=== PATIENT | male | born 1950 | race Caucasian/White ===

== ENCOUNTER 2025-03-03 13:10 | Observation (INO) ==
--- NOTE | 2025-02-20 09:28 | Anesthesiology Consultation ---
Date of Service February 20, 2025 Assessment & Plan (1) Encounter for pre-operative examination: Infectious disease screening: Per assessment on 02/18/25- No known recent infectious disease contacts or current infectious disease symptoms. Chart Review Chart Review: Acceptable Risk for Surgery and Patient NOT seen in Pre Admission Testing History Surgery Operation Date: 03/03/25 14:50 Proposed Procedures p TURP (Transurethral Resection of Prostate) - Wilfredo King MD Height/Weight Height: 6 ft Weight: 104.78 kg Allergies Allergy/AdvReac Type Severity Reaction Status Date / Time No Known Allergies Allergy Verified 02/18/25 07:48 Medications Home Medications Medication Instructions Recorded Confirmed Last Taken amlodipine 5 mg tablet 5 mg PO HS 02/16/25 02/18/25 Unknown cholecalciferol (vitamin D3) 25 25 mcg PO DAILY 02/16/25 02/18/25 Unknown mcg (1,000 unit) capsule doxycycline hyclate 100 mg capsule 100 mg PO QAM 02/16/25 02/18/25 Unknown finasteride 5 mg tablet 5 mg PO HS 02/16/25 02/18/25 Unknown imipramine HCl 50 mg tablet 50 mg PO QAM 02/16/25 02/18/25 Unknown lisinopril 5 mg tablet 5 mg PO HS 02/16/25 02/18/25 Unknown tamsulosin 0.4 mg capsule 0.4 mg PO QAM 02/16/25 02/18/25 Unknown Past Medical History Medical History (Updated 02/20/25 @ 09:57 by Maryam Toth) BPH (benign prostatic hyperplasia) History of chronic eye infection Takes doxycycline daily for this History of COVID-19 (2021) Resolved HTN (hypertension) Urinary retention due to benign prostatic hyperplasia Past Surgical History Surgical History Hx of appendectomy Hx of bilateral cataract extraction Hx of colonoscopy Social History Smoking Status: Former smoker Do You Dip or Chew Tobacco: No Smoking End Date: quit 20 yrs ago Hx Alcohol Use: Yes (2-3 per day) Alcohol type: beer alcohol intake frequency: 3 or more drinks per day Hx Substance Use: No substance use type: does not use Testing Laboratory Results 02/18/25 WBC 5.6 H/H 12.7/38.4 PLATELETS 227 SODIUM 138 POTASSIUM 5.0 CHLORIDE 107 CO2 23 BUN 25 CREATININE 1.5 GLUCOSE 97 02/16/25 UA negative Urine culture No growth Electrocardiogram Date: 02/18/25 SR with first degree ACV. 70bpm. LAFB. Chest X-Ray Date: 02/18/25 No acute process. Slight increased AP diameter and flattening of the diaphragms suggestive of a component of COPD.
[~2025-03-03 13:10] MED LIST: DEXAMETHASONE SOD INJ 4 MG/ML VIAL ONE; LIDOCAINE 2% 2 ML VIAL/AMP(20MG/ML) INFIL ONE; ONDANSETRON INJ 2 MG/ML 2 ML VIAL ONE; PROPOFOL IV EMULSION 10 MG/ML 20 ML VIAL IV ONE
[2025-03-03] MEDS: LR 15ML/HR IV SCH (13:31)
[2025-03-03] MEDS ORDERED: ATROPINE SULFATE 0.1 MG/ML 10ML SYR IV PRN (14:58)
[2025-03-03] MEDS ORDERED: ONDANSETRON INJ 2 MG/ML 2 ML VIAL IV PRN (14:58)
--- NOTE | 2025-03-03 16:52 | History & Physical Bridge Note ---
Date of Service March 03, 2025 History & Physical Bridge Note I have examined the patient, reviewed the History & Physical and in the interval since the performance of the History & Physical I have noted the following changes of clinical significance: no changes noted
[2025-03-03] MEDS: cefTRIAXone SODIUM 1,000 MG MINI-B 50 ML IV SCH (16:54)
[2025-03-03] MEDS ORDERED: ACETAMINOPHEN 325 MG TAB PO PRN (18:19)
[2025-03-03] MEDS ORDERED: IBUPROFEN 200 MG TAB PO PRN (18:19)
[2025-03-03] MEDS ORDERED: PHENAZOPYRIDINE HCL 100 MG TAB PO PRN (18:19)
--- NOTE | 2025-03-03 18:22 | Post Operative Brief Note ---
PG Immediate Post Op with CF Date of Surgery March 03, 2025 Pre & Post Diagnosis Operation Date: 03/03/25 14:50 Pre-Op Diagnosis: Urinary retention due to benign prostatic hyperplasia. Post-Op Diagnosis: Urinary retention due to benign prostatic hyperplasia. I identified the patient and participated in the time-out.: Yes Procedure Operation Date: 03/03/25 14:50 Actual Procedures p Transurethral Resection of Prostate(Not Applicable) - Wilfredo King MD Surgeon Wilfredo King MD Pallet Assembler none Estimated Blood Loss 50 Findings Consistent with Post-Op Diagnosis enlarged obstructing prostate with large median lobe Specimens Specimen Description: A. Prostate chips. Drains Harper Catheter
[2025-03-03 20:18] VITALS: RESP 16
[2025-03-03] MEDS: FINASTERIDE 5 MG TAB PO SCH (20:57)
[2025-03-04 02:35] VITALS: TEMP 97.9
[2025-03-04] MEDS: POLYETHYLENE (MIRALAX) 17 GM PACK PO SCH (08:17)
[2025-03-04] MEDS: IMIPRAMINE HCL 50 MG TAB PO SCH (08:17)
[2025-03-04] MEDS: DOXYCYCLINE HYCLATE 100 MG CAP PO SCH (08:18)
[2025-03-04] MEDS: CHOLECALCIFEROL 25 MCG (1000 UNITS) TAB PO SCH (08:18)
[2025-03-04] MEDS: TAMSULOSIN HCL 0.4 MG CAP PO SCH (08:18)
[2025-03-04 08:53] VITALS: BP 128/75; PULSE 83; O2SAT 99
--- NOTE | 2025-03-04 09:11 | Operative Report ---
PG Post Operative Report Pre & Post Diagnosis Operation Date: 03/03/25 14:50 Pre-Op Diagnosis: Urinary retention due to benign prostatic hyperplasia. Post-Op Diagnosis: Urinary retention due to benign prostatic hyperplasia. I identified the patient and participated in the time-out.: Yes Procedure Operation Date: 03/03/25 14:50 Actual Procedures p Transurethral Resection of Prostate(Not Applicable) - Wilfredo King MD Surgeon Wilfredo King MD Fence Maker none Estimated Blood Loss 50 Findings Consistent with Post-Op Diagnosis Specimens prostate chips Drains [address] catheter Description of Procedure SURGEON: Dr. King JOURNEYMAN TOOL AND DIE MAKER: NA PREOPERATIVE DIAGNOSIS: Enlarged Prostate POSTOPERATIVE DIAGNOSIS: same PROCEDURE: Cystourethroscopy, transurethral resection of prostate FINDINGS: 1. tri-lobar prostate enlargement ANESTHESIA: general ESTIMATED BLOOD LOSS: 50 cc TUBES AND DRAINS: [address] catheter SPECIMENS: 1. Prostate chips COMPLICATIONS: none INDICATIONS FOR PROCEDURE: See preoperative diagnosis OPERATIVE DETAIL: The patient was prepped and draped in the usual fashion in the operating room. A well lubricated resectoscope was inserted into the urethral meatus using the visual obturator and advanced into the bladder. Care was taken to keep the lumen in the center of view. The prostatic urethra was identified including the verumontanum. This landmark was used as the distal limit of resection to protect the urinary sphincter. The prostate was enlarged with kissing lobes and massive tri-lobar prostate enlargement. It was noted to visually obstruct passage into the bladder. Upon entering the bladder the visual obturator was exchanged for the resectoscope loop, the bladder was partially filled. Urine wasclear and wasnot sent for cytology. The bladder was then evaluated in a panendoscopic fashion. There wereno mucosal lesions, end stage trabeculations, numerous diverticuli and no stones. The left and right ureteral orifices were not identified in the orthotopic positions and appeared to be pulled back into diverticuli or obscrued by trabeculations. We then proceeded to resect the obstructing prostate tissue taking care to avoid advancing towards the ureteral orifices or distal to the verumontanum. Prostatic chips were evacuated using a aster syringe and meticulous hemostasis was achieved. All parts of the cystoscope and all instruments were removed intact from the patient. A [address] catheter was placed with cbi at slow drip. Urine was light pink The patient tolerated the procedure well. Please note thatI was present and performed all components of the procedure. I attest to the content of the Intraoperative Record and any orders documented therein. Any exceptions are noted below.
--- NOTE | 2025-03-04 09:36 | Urology Progress Note ---
<Statement entered by Wilfredo King MD - 03/04/25 12:25> Chart reviewed plan reviewed and agree as written. Date of Service March 04, 2025 Assessment & Plan (1) Urinary retention due to benign prostatic hyperplasia: Plan: - Pt POD#1 s/p TURP with Dr. King - Doing well, progressing as expected - Afebrile, stable vitals - Tolerating diet - 3 way Harper catheter intact, patent and draining minimally pink tinged urine with CBI on slow - CBI clamped during exam - will reassess later this AM - Maintain Harper catheter - Anticipate home with Harper catheter later today presuming urine appropriate and he continues to progress as expected - Expected clinical course reviewed, all questions answered - Will arrange outpatient follow-up with our service Admission and Anticipated Discharge Date Admission Date: March 03, 2025 Subjective Patient seen and examined at bedside. He is awake and in bed. No acute issues overnight. Denies pain. Harper draining minimally pink-tinged urine with CBI on slow. CBI clamped at bedside. No nausea, vomiting, fever or chills. Review of Systems Constitutional: as per Subjective / HPI Genitourinary: + as per Subjective / HPI Physical Exam Constitutional: well developed and well nourished; no acute distress Respiratory: normal respiratory effort; no respiratory distress and no labored breathing Gastrointestinal (Abdomen): Inspection/Auscultation: abdomen normal to inspection Musculoskeletal: Head/Neck/Chest: normocephalic Neurologic: moves all extremities and awake Psychiatric: Orientation: alert and oriented x 3 Genitourinary: Harper draining minimally pink-tinged urine with CBI on slow, CBI clamped at bedside Results & Data Vital Signs (Past 12 Hours) Vital Signs Temp Pulse Pulse Resp BP Pulse Ox O2 Del Method 03/04/25 08:52 36.6 C 83 16 128/75 99 Room Air 03/04/25 02:33 36.6 C 76 16 117/70 97 Room Air 03/03/25 22:09 36.5 C 71 16 146/82 H 97 Room Air PG Care Time/CCT Total # of Minutes Spent Total Time Spent with Patient: Total time spent is greater than 50% in coordination of care (as documented) at patient's floor/unit and/or counseling patient: Coding Level of Care Code None Diagnoses Urinary retention due to benign prostatic hyperplasia N40.1; R33.8
[2025-03-04] MEDS: cefTRIAXone SODIUM 2,000 MG/50 ML BAG IV SCH (10:22)
--- NOTE | 2025-03-04 11:25 | Discharge Summary ---
<Statement entered by Wilfredo King MD - 03/04/25 12:24> Chart reviewed plan reviewed and agree as written. Date of Service March 04, 2025 Admission HPI Per Admitting Provider Patient with BPH with obstruction here for transurethral resection of prostate. Principal Diagnosis BPH with obstruction Discharge Exam Constitutional well developed and well nourished; no acute distress Respiratory normal respiratory effort; no respiratory distress and no labored breathing Gastrointestinal (Abdomen) Inspection/Auscultation: abdomen normal to inspection Musculoskeletal Head/Neck/Chest: normocephalic Neurologic moves all extremities and awake Psychiatric Orientation: alert and oriented x 3 Discharge Data Allergies Allergy/AdvReac Type Severity Reaction Status Date / Time No Known Allergies Allergy Verified 03/03/25 13:22 Procedures Performed Operation Date: 03/03/25 14:50 Actual Procedures p Transurethral Resection of Prostate(Not Applicable) - Wilfredo King MD Hospital Course (1) Urinary retention due to benign prostatic hyperplasia: - Pt POD#1 s/p TURP with Dr. King - Doing well, progressing as expected - Afebrile, stable vitals - Tolerating diet - 3 way Harper catheter intact, patent and draining minimally pink tinged urine with CBI on slow - CBI clamped during exam - will reassess later this AM - Maintain Harper catheter - Anticipate home with Harper catheter later today presuming urine appropriate and he continues to progress as expected - Expected clinical course reviewed, all questions answered - Will arrange outpatient follow-up with our service Total Time Total Time Spent Total Time Spent (In Minutes): 25 Discharge Plan Discharge Items Patient Disposition: Home - Self-Care Reason For Visit: Benign Prostatic Hyperplasia with Lower Urinary Tr Discharge Diagnosis: Benign prostatic hyperplasia with lower urinary tract symptoms Activity: Per Instructions section Lifting: No more than 25 pounds Bathing Comment: Okay to shower to discharge, no tub bath or soaking Sexual Activity: Wait until after follow-up appointment Exercise/Sports: Wait until after follow-up appointment Non-emergency contact: Surgeon and Urologist Call non-emergency contact if: your pain is worsening, you have a fever and your temperature is above 101 Follow-up/Referrals: Patricia Chappell CRNP [Primary Care Provider] - Wilfredo King MD [Physician] - (THE UROLOGY OFFICE WILL CALL YOU WITH A HOSPITAL FOLLOW UP VISIT.) Diet: Regular Addtl Attending Provider Instructions: Please take all medications as prescribed and keep all follow-ups as scheduled. Please call our office at [phone] with any questions, concerns or need to reschedule appointments for any reason. We are happy to assist you. You can remove your Harper on March 10. Deflate the balloon prior to removing the catheter. There should be 10cc in Harper balloon. After removing 10 cc from balloon, double check to see if there is any more water in balloon before removing catheter. Sent Dulcolax for bowel regimen. Take as directed. Stop taking if you are having more than 1 BM per day. Tips for your recovery at home: Dont be alarmed by brownish or reddish blood or clots in your urine. This is a result of the procedure. This may occur off and on for weeks to months after the procedure but should continue to improve. Drink plenty of fluids during the day (enough to keep your urine very light colored). This will help keep a healthy flow of urine. Do not lift >25 lbs until your followup Avoid constipation. Be sure to finish the antibiotics as prescribed. If you go home with a catheter, please wash tubing where it enters your body twice daily with mild soap (Dove or Dial). Once your catheter is removed, expect some blood in your urine and some burning when you urinate. You should have an appointment to have this removed, if you do not please call our office to arrange. Pending Studies at Discharge: Yes Stand-Alone Forms: My [facility] [email or web address], Smoking Cessation Medications and DC Order Prescriptions: New ciprofloxacin HCl 500 mg tablet 500 mg PO BID Qty: 14 0RF bisacodyl [Dulcolax (bisacodyl)] 5 mg tablet,delayed release (DR/EC) 5 mg PO DAILY Qty: 3 0RF Continued amlodipine 5 mg tablet 5 mg PO HS cholecalciferol (vitamin D3) 25 mcg (1,000 unit) capsule 25 mcg PO DAILY doxycycline hyclate 100 mg capsule 100 mg PO QAM Patient Comments: takes daily chronic for chronic eye infection finasteride 5 mg tablet 5 mg PO HS imipramine HCl 50 mg tablet 50 mg PO QAM lisinopril 5 mg tablet 5 mg PO HS tamsulosin 0.4 mg capsule 0.4 mg PO QAM Discharge Orders: Discharge Order (Routine); Ordered 03/04/25 Ordered By: Tiana Mcneill/Other Patient Handouts: Indwelling Urinary Catheter Dc, Leg Bag Care Dc, Harper Catheter Male Ch Admission Data Admit Date/Time: 03/03/25 16:52 Attending Provider: Wilfredo King Admit Provider: Wilfredo King Primary Care Provider: Patricia Chappell Coding Level of Care Code 08012 IN/OBS DISCH 30 MIN/LESS Diagnoses Urinary retention due to benign prostatic hyperplasia N40.1; R33.8
== END 2025-03-04 12:20 | disposition home or self-care (01) ==
LOC: 3E 13:10 → ASU 13:10